=== PATIENT | female | born 1955 | race Caucasian/White ===

== ENCOUNTER 2021-08-11 13:16 | Emergency (ER) | payer MEDICARE, BC, SELFPAY ==
[2021-08-11 13:43] VITALS: BP 133/80; PULSE 79; RESP 16; TEMP 36.3; O2SAT 100
--- NOTE | 2021-08-11 14:14 | ED.GENADUL_ITS ---
Discharge Plan Disposition Patient Disposition: HOME Condition: Stable Discharge Details Clinical Impression: COVID-19 Primary Care Provider: None,None ED Provider: Juanita Curtis Home Meds and New Rx's Prescriptions: Continued metformin 500 mg Tablet 500 mg PO TIDWMEAL gabapentin 600 mg Tablet 600 mg PO BID glipizide 10 mg Tablet 10 mg PO BID omeprazole 10 mg Capsule,Delayed Release(Dr/Ec) 10 mg PO DAILY cephalexin 500 mg Capsule 500 mg PO BID hydrochlorothiazide 12.5 mg Capsule 12.5 mg PO DAILY lisinopril 40 mg Tablet 40 mg PO DAILY ezetimibe [Zetia] 10 mg Tablet 10 mg PO DAILY metoprolol sen-hydrochlorothiaz 50-12.5 mg Tablet Extended Release 24 Hr 50 tab PO DAILY aspirin 81 mg Capsule 81 mg PO DAILY Held atorvastatin 20 mg Tablet 60 mg PO DAILY Hold Instructions: Resume on 08/19/21. Please stop taking atorvastatin while you are taking Paxlovid and for 3 days after you stop taking paxlovid. Then please resume taking atorvastatin as usual. tolterodine [Detrol] 2 mg Tablet 5 mg PO DAILY Hold Instructions: Resume on 08/16/21. Please stop taking Detrol while taking Paxlovid. Then you may resume taking Detrol as usual. Discharge Instructions Additional Instructions: Please return immediately to the emergency department if you develop any new or worsening symptoms, if your condition does not improve as expected, or if you become otherwise concerned. It is extremely important that you call soon as possible to make an appointment to be seen in follow-up for this visit by your primary care doctor. You have been prescribed Paxlovid for COVID-19. It is very important that you stop taking your atorvastatin while you are taking Paxlovid and for 3 days after you have finished taking Paxlovid. Then you may resume taking atorvastatin as usual. Discharge Data Discharge Date/Time-TO BE ENTERED AT DEPARTURE: 08/11/21 17:10 Medical Decision Making Sweta Petty is a 66-year-old woman with a history of hyperlipidemia, hypertension, diabetes presenting to the emergency department with COVID. Patient is accompanied by her who is in the exam room with her and is also registered the patient COVID-positive with similar symptoms. Patient with positive COVID test at home this morning. Patient reports that she became symptomatic yesterday, states that her son tested positive for COVID 4 days ago. Patient reports that she has generalized body aches, cough, mild shortness of breath, headache, intermittent pain in her feet, right-sided earache, also has runny nose, sore throat, fatigue, and fever last night. Patient reports that she has no pain currently in the emergency department, no current shortness of breath. Patient reports that she has been eating and drinking as usual. Patient and her report that they are from [place], and are driving home in a few days. They state that they have presented to the emergency department to receive paxlovid, and otherwise would not have come to the emergency department and do not want further evaluation at this time. Patient is well and nontoxic-appearing on exam. Concern for COVID-19. Exam/history at this time is not consistent with acute coronary syndrome, pulmonary embolism, sepsis, other acute emergent life-threatening process. Patient requesting Paxlovid, given that we have no history in our system, plan for screening CMP to evaluate renal/hepatic function. Patient home medications checked with Paxlovid for interaction, patient should stop atorvastatin. Patient was counseled that she should not take atorvastatin while she is taking Paxlovid and for 3 days after she completes atorvastatin. Patient verbalized understanding and is amenable. I had a discussion with Patient regarding return to emergency department precautions, home care, and importance of outpatient follow-up. Pt verbalizes understanding of the plan and is amenable. Patient discharged to home with clear plan for outpatient follow- up. All questions were answered. Disposition decision was made weighing the risks and benefits of hospitalization versus outpatient treatment, the risk for further decompensation, and the patient's wishes. Medical Records Medical records reviewed: Yes I reviewed the patient's medical records. HPI General Date/Time Provider Initiated Documentation: 08/11/21 13:27 . Limitations to Documentation: no limitations . Information obtained by: patient, family, RN notes reviewed and old records reviewed . HPI Narrative: Sweta Petty is a 66-year-old woman with a history of hyperlipidemia, hypertension, diabetes presenting to the emergency department with COVID. Patient is accompanied by her who is in the exam room with her and is also registered the patient COVID-positive with similar symptoms. Patient reports that she became symptomatic yesterday, states that her son tested positive for COVID 4 days ago. Patient reports that she has generalized body aches, cough, mild shortness of breath, headache, intermittent pain in her feet, right-sided earache, also has runny nose, sore throat, fatigue, and fever last night. Patient reports that she has no pain currently in the emergency department, no current shortness of breath. Patient reports that she has been eating and drinking as usual. Patient and her report that they are from [place], and are driving home in a few days. They state that they have presented to the emergency department to receive paxlovid, and otherwise would not have come to the emergency department and do not want further evaluation at this time. Related Data Home Medications Medication Instructions Recorded Confirmed aspirin 81 mg capsule 81 mg PO DAILY 08/11/21 08/11/21 atorvastatin 20 mg tablet 60 mg PO DAILY 08/11/21 08/11/21 cephalexin 500 mg capsule 500 mg PO BID 08/11/21 08/11/21 ezetimibe 10 mg tablet (Zetia) 10 mg PO DAILY 08/11/21 08/11/21 gabapentin 600 mg tablet 600 mg PO BID 08/11/21 08/11/21 glipizide 10 mg tablet 10 mg PO BID 08/11/21 08/11/21 hydrochlorothiazide 12.5 mg capsule 12.5 mg PO DAILY 08/11/21 08/11/21 lisinopril 40 mg tablet 40 mg PO DAILY 08/11/21 08/11/21 metformin 500 mg tablet 500 mg PO TIDWMEAL 08/11/21 08/11/21 metoprolol succ 50 50 tab PO DAILY 08/11/21 08/11/21 mg-hydrochlorothiazide 12.5 mg tablet,ext.rel 24 hr omeprazole 10 mg capsule,delayed 10 mg PO DAILY 08/11/21 08/11/21 release tolterodine 2 mg tablet (Detrol) 5 mg PO DAILY 08/11/21 08/11/21 Allergies Allergy/AdvReac Type Severity Reaction Status Date / Time NSAIDS (Non-Steroidal Allergy Unknown Unverified 08/11/21 13:46 Anti-Inflamma General Stated Complaint: RespSymp KYLEIGH: 4 Review of Systems Narrative: Constitutional: Reports fever Eyes: denies eye pain ENT: denies dental pain, reports sore throat, right ear pain Cardiovascular: denies chest pain Respiratory: Reports SOB, cough GI: denies abdominal pain, vomiting, diarrhea : denies flank pain MSK: denies back pain, neck pain, reports generalized arthralgias, myalgias Skin: denies rash Neuro: denies numbness, weakness, reports headache PFSH All Active Problems COVID-19 (Acute) Social History Smoking/Tobacco Use Status: Never Smoking risk assessment performed?: Yes Substance use type: does not use Do you feel safe at home: Yes Do you feel safe in your relationship?: Yes Exam Narrative Exam Narrative: Constitutional: well and [id number], pleasant, conversing normally HENT: head atraumatic/normocephalic/normal inspection, mucous membranes moist, bilateral TMs and canals normal Eyes: conjunctiva normal, sclera normal, pupils 3mm b/l Neck: no stridor, normal ROM, trachea midline Resp: normal work of breathing, speaking in full sentences Cardio: normal rate, normal rhythm Skin: warm, dry, normal color, no rash Neuro: alert, not altered, grossly non-focal, normal tone, normal gait Ext: Moving all extremities equally Psych: normal mood, normal affect, normal behavior Course Vital Signs Vital signs: Vital Signs Temperature 36.3 C L 08/11/21 13:43 Pulse 79 08/11/21 13:43 Respiratory Rate 16 08/11/21 13:43 Blood Pressure 133/80 08/11/21 13:43 Pulse Oximetry 100 08/11/21 13:43 Temperature 36.3 C L 08/11/21 13:43 Pulse 79 08/11/21 13:43 Respiratory Rate 16 08/11/21 13:43 Respiratory Effort 08/11/21 13:51 Blood Pressure 133/80 08/11/21 13:43 Pulse Oximetry 100 08/11/21 13:43
[2021-08-11 15:34] LABS: ALT 32 U/L (14-59); AST 23 U/L (15-37); Alkaline Phosphatase 80 U/L (46-116); Anion Gap 9.1 mmol/L (3-11); BUN 16 mg/dL (7-18); Bilirubin, Total 0.6 mg/dL (0.2-1.0); CO2 26.9 mmol/L (21.0-32.0); CREATININE 0.9 mg/dL (0.55-1.02); Calcium 9.5 mg/dL (8.5-10.1); Chloride 101 mmol/L (98-107); Glucose 86 mg/dL (74-106); Potassium 3.6 mmol/L (3.5-5.1); Sodium 137 mmol/L (136-145); Total Protein 7.2 g/dL (6.4-8.2)
[2021-08-11 17:03] VITALS: BP 126/81; PULSE 84; TEMP 37; O2SAT 94
== END 2021-08-11 17:10 | disposition home or self-care (01) ==
PROVIDERS: Emergency Provider Student in an Organized Health Care Education/Training Program
DX: U07.1 COVID-19 (principal); E78.5 Hyperlipidemia, unspecified; Z79.899 Other long term (current) drug therapy; I10 Essential (primary) hypertension; E11.9 Type 2 diabetes mellitus without complications
CPT/HCPCS: 80053; 99283